=== PATIENT | male | born 1995 | race Hispanic/Latino ===

== ENCOUNTER 2020-03-17 00:42 | Observation (INO) | payer MEDICAID ==
[~2020-03-17] VITALS: Ht 170.2 cm; Wt 78.9 kg
[2020-03-17 01:53] LABS: BASOPHILS % (AUTO) 0.5 % (0.0-5.0); LYMPHOCYTES % (AUTO) 32.9 % (21.0-51.0); MEAN CORPUSCULAR HEMOGLOBIN 30.2 pg (27.0-33.0); MEAN CORPUSCULAR HGB CONC 35.3 g/dL (32.0-36.0); MEAN CORPUSCULAR VOLUME 85.5 fL (79-99); MONOCYTES % (AUTO) 8.7 % (3.0-13.0); NEUTROPHILS % (AUTO) 54.8 % (40.0-77.0); PLATELET COUNT (AUTO) 247 K/uL (130-400); RED BLOOD CELL COUNT(AUTO) 5.03 MIL/uL (4.50-6.20); RED CELL DISTRIBUTION WIDTH 12.4 % (11.0-15.5); WHITE BLOOD COUNT (AUTO) 7.5 K/uL (4.8-10.8)
[2020-03-17 02:04] LABS: POTASSIUM 3.7 mmol/L (3.5-5.1)
[2020-03-17 02:08] LABS: ALBUMIN 4.3 g/dL (3.5-5.0); BILIRUBIN,TOTAL 0.5 mg/dL (0.2-1.0); TOTAL PROTEIN, SERUM 7.9 g/dL (6.0-8.3)
[2020-03-17] MEDS ORDERED: KETOROLAC 30MG VIAL (30MG/ML) ONE (04:11)
[2020-03-17] MEDS ORDERED: DICYCLOMINE 20MG (10MG/ML) AMP IM ONE (04:11)
[2020-03-17] MEDS ORDERED: MORPHINE 4 MG SYG IV PRN (05:00)
[2020-03-17] MEDS: LACTATED RINGERS 1000ML 1,000 ML IV SCH (05:00)
[2020-03-17] MEDS ORDERED: LACTULOSE 20 GM/30 ML UDCUP PO PRN (05:00)
[2020-03-17] MEDS ORDERED: GUAIFENESIN-DM 200/20 MG 10 ML PO PRN (05:00)
[2020-03-17] MEDS ORDERED: DiphenhydrAMINE HCL 50 MG/ML VIAL IV PRN (05:00)
[2020-03-17] MEDS ORDERED: ACETAMINOPHEN 325 MG TAB PO PRN ×2 (05:00)
[2020-03-17] MEDS ORDERED: DIPHENHYDRAMINE HCL 25 MG CAPSULE PO PRN (05:00)
[2020-03-17] MEDS ORDERED: MAG/ALUM/SIMETH 30 ML UDCUP PO PRN (05:00)
[2020-03-17] MEDS: CEFTRIAXONE 1G VIAL IV SCH (05:00)
[2020-03-17] MEDS ORDERED: NITROGLYCERIN 0.4 MG SL TAB SL PRN (05:00)
[2020-03-17] MEDS ORDERED: CEFTRIAXONE 1G VIAL ONE (05:56)
[2020-03-17] MEDS ORDERED: METRONIDAZOLE 500MG/100ML BAG 100 ML ONE ×3 (05:56→23:01)
[2020-03-17] MEDS ORDERED: LACTATED RINGERS 1000ML 1,000 ML IV ONE (05:56)
[2020-03-17] MEDS ORDERED: FAMOTIDINE 20MG VIAL IV ONE ×2 (08:16→23:01)
[2020-03-17] MEDS: FAMOTIDINE 20MG VIAL IV SCH ×2 (09:00→21:00)
[2020-03-17] MEDS: METRONIDAZOLE 500MG/100ML BAG 100 ML IV SCH (21:00)
[2020-03-18] MEDS: LACTATED RINGERS 1000ML 1,000 ML IV SCH ×3 (01:00→03:05)
[2020-03-18 01:36] VITALS: BP 156/77
[2020-03-18 03:53] VITALS: BP 116/75
[2020-03-18] MEDS: CEFTRIAXONE 1G VIAL IV SCH (05:55)
[2020-03-18] MEDS: METRONIDAZOLE 500MG/100ML BAG 100 ML IV SCH ×3 (05:55→20:00)
[2020-03-18 06:17] LABS: HEMATOCRIT 42.3 % (42-54); MEAN CORPUSCULAR HEMOGLOBIN 30.1 pg (27.0-33.0); MEAN CORPUSCULAR HGB CONC 35.2 g/dL (32.0-36.0); MEAN CORPUSCULAR VOLUME 85.5 fL (79-99); RED BLOOD CELL COUNT(AUTO) 4.95 MIL/uL (4.50-6.20); RED CELL DISTRIBUTION WIDTH 12.1 % (11.0-15.5); WHITE BLOOD COUNT (AUTO) 7.1 K/uL (4.8-10.8)
[2020-03-18 06:42] LABS: INR 1.11 (0.85-1.15)
[2020-03-18 06:43] LABS: PARTIAL THROMBOPLASTIN TIME 27.3 SEC (26.3-35.5)
[2020-03-18 06:58] LABS: ALBUMIN 3.8 g/dL (3.5-5.0); BILIRUBIN,TOTAL 0.4 mg/dL (0.2-1.0); CREATININE 0.9 mg/dL (0.5-1.5); POTASSIUM 4.2 mmol/L (3.5-5.1); TOTAL PROTEIN, SERUM 7.3 g/dL (6.0-8.3)
[2020-03-18 08:02] VITALS: BP 122/72
[2020-03-18] MEDS: FAMOTIDINE 20MG VIAL IV SCH ×2 (10:06→20:00)
[2020-03-18 11:12] VITALS: BP 128/55
[2020-03-18] MEDS ORDERED: LACTATED RINGERS 1000ML 1,000 ML IV ONE (15:37)
[2020-03-18 16:29] VITALS: BP 109/67
[2020-03-18 20:00] VITALS: BP 113/71
[2020-03-19] VITALS (27 sets, daily range): BP systolic 116–150; BP diastolic 45–99
[2020-03-19 04:34] LABS: HEMATOCRIT 41.2 % (42-54); MEAN CORPUSCULAR HEMOGLOBIN 29.5 pg (27.0-33.0); MEAN CORPUSCULAR HGB CONC 35.2 g/dL (32.0-36.0); MEAN CORPUSCULAR VOLUME 83.9 fL (79-99); RED BLOOD CELL COUNT(AUTO) 4.91 MIL/uL (4.50-6.20); RED CELL DISTRIBUTION WIDTH 11.9 % (11.0-15.5); WHITE BLOOD COUNT (AUTO) 6.1 K/uL (4.8-10.8)
[2020-03-19] MEDS ORDERED: LACTATED RINGERS 1000ML 1,000 ML IV ONE (04:36)
[2020-03-19] MEDS: METRONIDAZOLE 500MG/100ML BAG 100 ML IV SCH ×3 (04:38→20:09)
[2020-03-19] MEDS: CEFTRIAXONE 1G VIAL IV SCH (04:38)
[2020-03-19 04:55] LABS: ALBUMIN 3.7 g/dL (3.5-5.0); BILIRUBIN,TOTAL 0.6 mg/dL (0.2-1.0); CREATININE 0.9 mg/dL (0.5-1.5); POTASSIUM 3.7 mmol/L (3.5-5.1)
[2020-03-19] MEDS ORDERED: BUPIVACAINE/PF 0.25% 30ML VIAL IJ ONE (06:48)
[2020-03-19] MEDS ORDERED: SUCCINYLCHOLINE CHLORIDE 20 MG/ML 10 ML VIAL ONE (07:45)
[2020-03-19] MEDS ORDERED: DEXAMETHASONE SOD PHOSPHATE 10MG/ML 1ML VIAL ONE (07:45)
[2020-03-19] MEDS ORDERED: NEOSTIGMINE 5MG/5ML SYR IV ONE (07:46)
[2020-03-19] MEDS ORDERED: LIDOCAINE PF 100MG/5ML (2%) SYRINGE 5ML ONE (07:46)
[2020-03-19] MEDS ORDERED: GLYCOPYRROLATE 1 MG/5 ML SYRINGE ONE (07:46)
[2020-03-19] MEDS ORDERED: MIDAZOLAM HCL 1 MG/ML 2ML VIAL ONE (07:46)
[2020-03-19] MEDS ORDERED: PROPOFOL 10 MG/ML 20ML VIAL IV ONE ×2 (07:46→08:08)
[2020-03-19] MEDS ORDERED: ROCURONIUM 10MG/1ML SYR 10 MG/ML ML ONE (07:46)
[2020-03-19] MEDS ORDERED: ONDANSETRON 4MG INJ ONE (07:46)
[2020-03-19] MEDS ORDERED: FENTANYL CITRATE PF 50 MCG/1 ML 2ML VIAL ONE ×2 (07:47→08:23)
[2020-03-19] MEDS ORDERED: MEPERIDINE-PF 25 MG/ML SYG ONE ×2 (08:49→09:19)
[2020-03-19] MEDS: ONDANSETRON 4MG INJ IV PRN ×2 (09:30→20:09)
[2020-03-19] MEDS: FAMOTIDINE 20MG VIAL IV SCH ×2 (10:09→20:10)
[2020-03-19] MEDS: MORPHINE 2 MG SYG IV PRN ×2 (12:23→20:10)
[2020-03-20] MEDS ORDERED: LACTATED RINGERS 1000ML 1,000 ML IV SCH (00:45)
[2020-03-20] MEDS ORDERED: LACTATED RINGERS 1000ML 1,000 ML IV ONE (00:45)
[2020-03-20] MEDS ORDERED: ACETAMINOPHEN WITH CODEINE 1 TAB TAB PO PRN (00:45)
[2020-03-20] MEDS ORDERED: ACETAMINOPHEN WITH CODEINE 1 TAB TAB ONE (00:46)
[2020-03-20 03:35] VITALS: BP 137/63
[2020-03-20] MEDS: METRONIDAZOLE 500MG/100ML BAG 100 ML IV SCH (04:49)
[2020-03-20] MEDS: CEFTRIAXONE 1G VIAL IV SCH (04:49)
[2020-03-20 05:47] LABS: HEMATOCRIT 37.7 % (42-54); MEAN CORPUSCULAR HEMOGLOBIN 29.8 pg (27.0-33.0); MEAN CORPUSCULAR HGB CONC 35.3 g/dL (32.0-36.0); MEAN CORPUSCULAR VOLUME 84.5 fL (79-99); RED BLOOD CELL COUNT(AUTO) 4.46 MIL/uL (4.50-6.20); WHITE BLOOD COUNT (AUTO) 10.9 K/uL (4.8-10.8)
[2020-03-20 06:13] LABS: ALBUMIN 3.5 g/dL (3.5-5.0); BILIRUBIN,TOTAL 0.6 mg/dL (0.2-1.0); POTASSIUM 3.5 mmol/L (3.5-5.1); TOTAL PROTEIN, SERUM 6.8 g/dL (6.0-8.3)
[2020-03-20 07:30] VITALS: BP 119/60
[2020-03-20] MEDS: FAMOTIDINE 20MG VIAL IV SCH (09:28)
[2020-03-20 11:00] VITALS: BP 142/78
[2020-10-12] MEDS ORDERED: CYCL10TA16 PO (14:46)
== END 2020-03-20 18:30 | disposition home or self-care (01) ==
LOC: EDH 00:42 → EDHIP 00:43 → INTOOBSV 00:43 → UNDOADMIN 04:59 → EDHIP 04:59 → 3BH 03-18 01:37
PROVIDERS: ADMIT Family Medicine; ATTEND Family Medicine
DX: K80.62 Calculus of gallbladder and bile duct with acute cholecystitis without obstruction (principal); Z20.822 Contact with and (suspected) exposure to COVID-19
CPT/HCPCS: 36415 ×4; 47562; 71046; 76705; 78226; 80053 ×4; 83690; 85025; 85027 ×3; 85610; 85730; 87426; 88304; 96361 ×2; 96365; 96366 ×3; 96375 ×2; 96376 ×3; 99285; A4215; A4221; A4222; A4223; A4600; A4649 ×2; A4663; A9537; C1769 ×3; G0378 ×83; J0330; J0500; J0696 ×4; J1100; J1885; J2001; J2175 ×2; J2250; J2405 ×3; J2704 ×2; J2710; J3010 ×2; J3490 ×18; J7030; J7120 ×5

== ENCOUNTER 2020-03-24 19:34 | Emergency (ER) | payer MEDICAID ==
[2020-03-24] MEDS ORDERED: SODIUM CHLORIDE 0.9% 1000ML 1,000 ML IV ONE (21:10)
[2020-03-24] MEDS ORDERED: ONDANSETRON HCL 4 MG/2 ML VIAL ONE (21:13)
[2020-03-24 22:05] LABS: BASOPHILS % (AUTO) 0.9 % (0.0-5.0); EOSINOPHILS % (AUTO) 5.9 % (0.0-8.0); LYMPHOCYTES % (AUTO) 28.1 % (21.0-51.0); MEAN CORPUSCULAR HEMOGLOBIN 29.6 pg (27.0-33.0); MEAN CORPUSCULAR HGB CONC 34.8 g/dL (32.0-36.0); MONOCYTES % (AUTO) 9.7 % (3.0-13.0); NEUTROPHILS % (AUTO) 55.1 % (40.0-77.0); PLATELET COUNT (AUTO) 271 K/uL (130-400); RED BLOOD CELL COUNT(AUTO) 4.94 MIL/uL (4.50-6.20); RED CELL DISTRIBUTION WIDTH 12.4 % (11.0-15.5); WHITE BLOOD COUNT (AUTO) 6.4 K/uL (4.8-10.8)
[2020-03-24 22:17] LABS: CREATININE 0.8 mg/dL (0.5-1.5); POTASSIUM 3.6 mmol/L (3.5-5.1)
[2020-03-24 22:21] LABS: ALBUMIN 3.8 g/dL (3.5-5.0); BILIRUBIN,TOTAL 0.3 mg/dL (0.2-1.0); TOTAL PROTEIN, SERUM 8.1 g/dL (6.0-8.3)
[2020-03-24] MEDS ORDERED: IOHEXOL-350 75 ML VIAL IV ONE (22:45)
[2020-03-24 22:46] LABS: APPEARANCE,URINE Clear (CLEAR); BILIRUBIN,URINE Negative (NEGATIVE); COLOR,URINE Yellow (YELLOW); GLUCOSE, URINE (UA) Negative (NEGATIVE); KETONES,URINE Trace mg/dL (NEGATIVE); LEUKOCYTE ESTERASE ,URINE Negative (NEGATIVE); NITRATE,URINE Negative (NEGATIVE); OCCULT BLOOD,URINE Negative (NEGATIVE); PROTEIN,URINE Negative (NEGATIVE)
== END 2020-03-24 23:39 | disposition home or self-care (01) ==
LOC: EDH 19:34
DX: E86.0 Dehydration (principal); R10.12 Left upper quadrant pain; Z90.49 Acquired absence of other specified parts of digestive tract
CPT/HCPCS: 36415; 80053; 81003; 83690; 85025; 96360; 99283; J2405; J7030; Q9967

== ENCOUNTER 2020-04-09 12:33 | Emergency (ER) | payer MEDICAID ==
[2020-04-09 13:05] LABS: BASOPHILS % (AUTO) 0.8 % (0.0-5.0); EOSINOPHILS % (AUTO) 3.4 % (0.0-8.0); HEMATOCRIT 43.3 % (42-54); LYMPHOCYTES % (AUTO) 40.3 % (21.0-51.0); MEAN CORPUSCULAR HEMOGLOBIN 29.9 pg (27.0-33.0); MEAN CORPUSCULAR HGB CONC 35.1 g/dL (32.0-36.0); MEAN CORPUSCULAR VOLUME 85.2 fL (79-99); MONOCYTES % (AUTO) 10.9 % (3.0-13.0); NEUTROPHILS % (AUTO) 44.4 % (40.0-77.0); PLATELET COUNT (AUTO) 300 K/uL (130-400); RED BLOOD CELL COUNT(AUTO) 5.08 MIL/uL (4.50-6.20); RED CELL DISTRIBUTION WIDTH 12.6 % (11.0-15.5); WHITE BLOOD COUNT (AUTO) 4.8 K/uL (4.8-10.8)
[2020-04-09] MEDS ORDERED: ONDANSETRON HCL 4 MG/2 ML VIAL ONE (13:11)
[2020-04-09] MEDS ORDERED: SODIUM CHLORIDE 0.9% 1000ML 1,000 ML IV ONE (13:11)
[2020-04-09 13:22] LABS: ALBUMIN 4.2 g/dL (3.5-5.0); BILIRUBIN,TOTAL 0.6 mg/dL (0.2-1.0); CREATININE 0.9 mg/dL (0.5-1.5); POTASSIUM 3.7 mmol/L (3.5-5.1); TOTAL PROTEIN, SERUM 7.8 g/dL (6.0-8.3)
[2020-04-09] MEDS ORDERED: IOHEXOL-350 75 ML VIAL IV ONE (15:09)
== END 2020-04-09 16:08 | disposition home or self-care (01) ==
LOC: EDH 12:33
DX: K59.00 Constipation, unspecified (principal); Z90.49 Acquired absence of other specified parts of digestive tract
CPT/HCPCS: 36415; 74177; 80053; 83690; 85025; 96374; 99285; J2405; J7030; Q9967

== ENCOUNTER 2020-04-16 15:07 | Emergency (ER) | payer MEDICAID | END 2020-04-16 16:19 | disposition home or self-care (01) | LOC: EDH 15:07 | DX: K59.00 Constipation, unspecified (principal); Z90.49 Acquired absence of other specified parts of digestive tract ==

== ENCOUNTER 2020-06-18 14:46 | Emergency (ER) | payer MEDICAID | END 2020-06-18 16:23 | disposition home or self-care (01) | LOC: EDH 14:46 | DX: H65.01 Acute serous otitis media, right ear (principal); H00.019 Hordeolum externum unspecified eye, unspecified eyelid; Z90.49 Acquired absence of other specified parts of digestive tract ==

== ENCOUNTER 2020-10-12 11:58 | Emergency (ER) | payer MEDICAID ==
[~2020-10-12] VITALS: Ht 170.2 cm; Wt 80.7 kg
[2020-10-12] MEDS ORDERED: ONDA4TAB10 PO (14:46)
[2020-10-12] MEDS ORDERED: CYCL10 PO (14:46)
[2020-10-12] MEDS ORDERED: NAPR-1180 PO (14:46)
[2020-10-12] MEDS ORDERED: ACETAMINOPHEN 500 MG TABLET PO ONE (15:00)
[2020-10-12] MEDS ORDERED: CYCLOBENZAPRINE HCL 10 MG TABLET PO ONE (15:00)
[2020-10-12 15:01] VITALS: BP 135/74
== END 2020-10-12 15:16 | disposition home or self-care (01) ==
LOC: EDH 11:58
DX: S09.90XA Unspecified injury of head, initial encounter (principal); F07.81 Postconcussional syndrome; Z79.1 Long term (current) use of non-steroidal anti-inflammatories (NSAID); Z79.899 Other long term (current) drug therapy; X58.XXXA Exposure to other specified factors, initial encounter; Y93.67 Activity, basketball; Y92.89 Other specified places as the place of occurrence of the external cause; Y99.8 Other external cause status

== ENCOUNTER 2020-10-25 07:41 | Emergency (ER) | payer MEDICAID ==
[~2020-10-25] VITALS: Ht 167.6 cm; Wt 79.4 kg
[~2020-10-25 07:41] MED LIST: CYCL10 PO; NAPR-1180 PO; ONDA4TAB10 PO
[2020-10-25 07:42] VITALS: BP 134/66
[2020-10-25] MEDS ORDERED: IBUP-2070 PO (09:26)
[2020-10-25 10:19] VITALS: BP 122/61
== END 2020-10-25 10:22 | disposition home or self-care (01) ==
LOC: EDH 07:41
DX: J06.9 Acute upper respiratory infection, unspecified (principal); Z20.822 Contact with and (suspected) exposure to COVID-19; Z79.1 Long term (current) use of non-steroidal anti-inflammatories (NSAID); Z79.899 Other long term (current) drug therapy
CPT/HCPCS: 87635; 87804 ×2; 99283; C9803

== ENCOUNTER 2021-01-31 20:33 | Emergency (ER) | payer MEDICAID ==
[~2021-01-31] VITALS: Ht 170.2 cm; Wt 81.6 kg
[~2021-01-31 20:33] MED LIST changes: -CYCL10 PO; +CYCL10TA16 PO; +IBUP-2070 PO
[2021-01-31 20:35] VITALS: BP 132/72
[2021-01-31] MEDS ORDERED: IBUP-2077 PO (21:47)
== END 2021-01-31 21:54 | disposition home or self-care (01) ==
LOC: EDH 20:33
DX: S53.441A Ulnar collateral ligament sprain of right elbow, initial encounter (principal); Z90.49 Acquired absence of other specified parts of digestive tract; Z79.899 Other long term (current) drug therapy; Z79.1 Long term (current) use of non-steroidal anti-inflammatories (NSAID); X58.XXXA Exposure to other specified factors, initial encounter; Y93.89 Activity, other specified; Y92.89 Other specified places as the place of occurrence of the external cause; Y99.8 Other external cause status
CPT/HCPCS: 29125; 73130

== ENCOUNTER 2021-08-10 16:08 | Emergency (ER) | payer MEDICAID ==
[~2021-08-10] VITALS: Ht 170.2 cm; Wt 81.6 kg
[~2021-08-10 16:08] MED LIST changes: +IBUP-2077 PO
[2021-08-10] MEDS ORDERED: IBUPROFEN 800 MG TAB PO ONE (16:30)
[2021-08-10] MEDS ORDERED: IBUP-2071 PO (17:19)
[2021-08-10 17:32] VITALS: BP 126/70
== END 2021-08-10 17:33 | disposition home or self-care (01) ==
LOC: EDH 16:08
DX: S90.31XA Contusion of right foot, initial encounter (principal); Z79.1 Long term (current) use of non-steroidal anti-inflammatories (NSAID); X58.XXXA Exposure to other specified factors, initial encounter; Y93.61 Activity, american tackle football; Y92.89 Other specified places as the place of occurrence of the external cause; Y99.8 Other external cause status
CPT/HCPCS: 73630

== ENCOUNTER 2022-12-19 03:13 | Emergency (ER) | payer MEDICAID ==
[~2022-12-19] VITALS: Ht 170.2 cm; Wt 83.9 kg
[~2022-12-19 03:13] MED LIST changes: +IBUP-2071 PO
[2022-12-19] MEDS ORDERED: CEFTRIAXONE 2GM VIAL IJ ONE (03:30)
[2022-12-19] MEDS ORDERED: KETOROLAC 60 MG VIAL (30MG/ML) IM ONE (03:30)
[2022-12-19] MEDS ORDERED: CIPR7.5D7 OT (03:38)
[2022-12-19 04:02] VITALS: BP 128/78; PULSE 88; RESP 20; O2SAT 99
== END 2022-12-19 04:04 | disposition home or self-care (01) ==
LOC: EDH 03:13
DX: H60.92 Unspecified otitis externa, left ear (principal); Z79.899 Other long term (current) drug therapy
CPT/HCPCS: 99283; 96372; J0696; J1885

== ENCOUNTER 2023-06-29 13:05 | Emergency (ER) | payer BC, MEDICAID ==
[~2023-06-29] VITALS: Ht 170.2 cm; Wt 85.7 kg
[~2023-06-29 13:05] MED LIST changes: +CIPR7.5D7 OT
[2023-06-29 13:45] LABS: ADD UA MICROSCOPIC YES; APPEARANCE,URINE CLEAR (CLEAR); BILIRUBIN,URINE NEGATIVE (NEGATIVE); COLOR,URINE YELLOW (YELLOW); GLUCOSE, URINE (UA) NEGATIVE (NEGATIVE); KETONES,URINE NEGATIVE (NEGATIVE); LEUKOCYTE ESTERASE ,URINE NEGATIVE Leu/uL (NEGATIVE); NITRATE,URINE NEGATIVE (NEGATIVE); OCCULT BLOOD,URINE NEGATIVE (NEGATIVE); PH,URINE 5.5 (5.0-8.0); PROTEIN,URINE 10 mg/dL (NEGATIVE); UROBILINOGEN,URINE 0.2 mg/dL (0.2-1.0)
[2023-06-29 13:47] LABS: MUCUS,URINE RARE LPF (None Seen); RBC,URINE 0-1 /HPF (0-1); SQUAMOUS EPITHELIAL CELL,UR RARE /HPF (0-2); WBC,URINE 0-1 /HPF (0-1)
[2023-06-29 13:48] LABS: BASOPHILS # (AUTO) 0.03 K/uL (0.00-0.20); BASOPHILS % (AUTO) 0.6 % (0.0-5.0); EOSINOPHILS # (AUTO) 0.15 K/uL (0.00-0.70); EOSINOPHILS % (AUTO) 2.8 % (0.0-8.0); HEMATOCRIT 44.2 % (42-54); IMMATURE GRANULOCYTE ABSOLUTE 0.01 K/uL (0-1); LYMPHOCYTES # (AUTO) 1.6 K/uL (1.0-4.8); LYMPHOCYTES % (AUTO) 30.1 % (21.0-51.0); MEAN CORPUSCULAR HGB CONC 35.3 g/dL (32.0-36.0); MONOCYTES # (AUTO) 0.5 K/uL (0.1-1.0); MONOCYTES % (AUTO) 8.7 % (3.0-13.0); NEUTROPHILS # (AUTO) 3.1 K/uL (1.8-7.7); NEUTROPHILS % (AUTO) 57.6 % (40.0-77.0); PLATELET COUNT (AUTO) 268 K/uL (130-400); RED CELL DISTRIBUTION WIDTH 12.5 % (11.0-15.5); WHITE BLOOD COUNT (AUTO) 5.4 K/uL (4.8-10.8)
[2023-06-29 14:00] LABS: POTASSIUM 3.7 mmol/L (3.5-5.1)
[2023-06-29 14:04] LABS: BILIRUBIN,TOTAL 0.4 mg/dL (0.2-1.0); TOTAL PROTEIN, SERUM 7.9 g/dL (6.0-8.3)
[2023-06-29 14:15] VITALS: BP 118/61; PULSE 69; RESP 15
== END 2023-06-29 15:53 | disposition home or self-care (01) ==
LOC: EDH 13:05
DX: R07.89 Other chest pain (principal); Z90.49 Acquired absence of other specified parts of digestive tract
CPT/HCPCS: 36415; 71045; 80053; 81001; 83735; 84484; 85025; 93005

== ENCOUNTER → 2023-08-30 | Outpatient (CLI) | payer BC ==
[~2023-08-30] MED LIST changes: +IBUP-1493 PO; +IOHEXOL 350 MG/ML 100ML INFUS..BTL IV ONE; +ONDA-243 PO; -ONDA4TAB10 PO
== END | disposition home or self-care (01) ==
LOC: RAH 09:13
PROVIDERS: ATTEND Internal Medicine
DX: R07.9 Chest pain, unspecified (principal)
CPT/HCPCS: 75574; Q9967

== ENCOUNTER 2023-12-01 13:36 | Emergency (ER) | payer BC ==
[~2023-12-01] VITALS: Ht 170.2 cm; Wt 87.5 kg
[~2023-12-01 13:36] MED LIST changes: -IOHEXOL 350 MG/ML 100ML INFUS..BTL IV ONE
[2023-12-01 13:43] VITALS: TEMP 98.7
[2023-12-01 15:09] VITALS: BP 122/72; PULSE 80; RESP 16; O2SAT 98
== END 2023-12-01 15:16 | disposition home or self-care (01) ==
LOC: EDH 13:36
DX: M79.662 Pain in left lower leg (principal); Z79.1 Long term (current) use of non-steroidal anti-inflammatories (NSAID); Z88.8 Allergy status to other drugs, medicaments and biological substances; Z90.49 Acquired absence of other specified parts of digestive tract; Z91.041 Radiographic dye allergy status
CPT/HCPCS: 93971

== ENCOUNTER → 2023-12-08 | Outpatient (CLI) | payer BC | END | disposition home or self-care (01) | LOC: RAH 08:48 | PROVIDERS: ATTEND Podiatrist | DX: M25.472 Effusion, left ankle (principal); M79.89 Other specified soft tissue disorders; M79.662 Pain in left lower leg | CPT/HCPCS: 73718; 73721 ==

== ENCOUNTER 2024-02-22 10:44 | Emergency (ER) | payer BC ==
[~2024-02-22] VITALS: Ht 170.2 cm; Wt 86.2 kg
[2024-02-22 10:45] VITALS: BP 131/92; PULSE 58; RESP 16; TEMP 97.9; O2SAT 98
--- NOTE | 2024-02-22 11:13 | ERN ---
General Chief Complaint: Abdominal Pain Stated Complaint: ABDOMINAL PAIN Time Seen by MD: 10:45 History of Present Illness Initial Comments This is a case of a 28-year-old male with a past medical history of cholecystectomy who presented to the ER with the complaints of lower abdominal pain, bloating, diarrhea since the past 2 weeks. He states that he has been experiencing intermittent lower abdominal pain radiating from left to right, blood-tinged diarrhea, bloating, burning sensation urinating since 2 weeks. He also mentions that he has recently completed an antibiotic course [unable to recall the name] prescribed at a clinic. Denies fever, chills, cough, cold, sore throat, nausea, vomiting, chest pain, palpitations, upper abdominal pain. Allergies: Coded Allergies: iodine (Verified Allergy, Mild, HIVES, 08/31/23) Patient had 2 hives develop post injection for CTA CORONARY HEART. pt was given water and held for additional 40 minutes and monitored for further reactions. No further hives were noted and pt was released to go home and advised to drink plenty of water and let all his Physicians know about his iodine allergy. I advised 's office as well about his reaction. Home Meds Active Scripts Ciprofloxacin HCl/Dexameth (Ciproflox-Dexameth Otic Susp) 0.3 %-0.1 % Drops.susp, 7.5 ML OT BID for 7 Days, #4 DROP 0 Refills Prov:ELDER RAI Sr., MD 12/19/22 Ibuprofen (Motrin/Advil) 800 Mg Tab, 800 MG PO TID, #30 TAB Prov:PATRIA JONES MD 12/03/22 Cyclobenzaprine HCl (Flexeril) 10 Mg Tab, 10 MG PO TID for 10 Days, #30 TAB Prov:SKYLER EDWARDS MD 04/17/22 Ibuprofen (Ibuprofen 800 mg Tab) 800 Mg Tab, 800 MG PO Q8H PRN for PAIN for 10 Days, #30 TAB Prov:SKYLER EDWADRS MD 04/17/22 Ibuprofen (Ibuprofen) 800 Mg Tablet, 800 MG PO TIDMEALS PRN for PAIN, #45 TAB Prov:LOUIE MCFADDEN 08/10/21 Ibuprofen (Ibuprofen 800 mg Tab) 800 Mg Tab, 800 MG PO Q8H PRN for PAIN for 10 Days, #30 TAB Prov:SKYLER EDWARDS MD 01/31/21 Ibuprofen (Ibuprofen) 600 Mg Tablet, 600 MG PO Q6H PRN for Fever/pain, #30 TAB Prov:TODD HUI MD 10/25/20 Ondansetron (Ondansetron Odt) 4 Mg Tab.rapdis, 4 MG PO TIDP, #21 TAB Prov:LOUIE MCFADDEN 10/12/20 Cyclobenzaprine HCl (Flexeril) 10 Mg Tab, 10 MG PO BID, #30 TAB Prov:LOUIE MCFADDEN 10/12/20 Naproxen (Naprosyn) 500 Mg Tablet, 500 MG PO BIDPC, #30 TAB Prov:LOUIE MCFADDEN 10/12/20 Past Medical History Past Medical History: No Pertinent History Past Surgical History: Cholecystectomy Surgical History Other: Denies surgical history Family History Family History: Negative Social History Social History: Lives with family ROS Dictation CONSTITUTIONAL: No chills, no fever, no weakness, no diaphoresis, no malaise. HEAD/FACE: No signs of trauma. EENT: No eye pain, no blurred vision, no tearing, no double vision, no ear pain, no ear discharge, no nose pain, no nasal congestion, no throat pain, no throat swelling, no mouth pain. RESPIRATORY: No cough, no orthopnea, no SOB, no stridor, no wheezing. CARDIOVASCULAR: No chest pain, no edema, no palpitations, no syncope. GASTROINTESTINAL/ABDOMINAL: Intermittent lower abdominal pain, blood-tinged diarrhea, bloating no constipation, no nausea, no vomiting. GENITOURINARY: No abnormal discharge, no dysuria, no frequent urination, no hematuria. No complaints of pain in the genitals, burning sensation during urination. MUSCULOSKELETAL: No back pain, no gout, no joint pain, no joint swelling, no muscle pain, no muscle stiffness, no neck pain. INTEGUMENTARY: No change in color, no change in hair/nails, no dryness, no lesion, no lumps, no rash. NEUROLOGICAL/PSYCH: No anxiety, not depressed, no emotional problem, no headache, no numbness, no pre-existing deficit, no history of seizures, no tremors, no weakness. HEMATOLOGIC/LYMPHATIC: Not anemic, no history of blood clots, no apparent bleeding, no bruising, glands not swollen. All Systems Negative, Except as Noted. Physical Exam Physical Exam Dictation Physical Exam Dictation VITAL SIGNS: Reviewed. GENERAL APPEARANCE: Alert, oriented x3, no acute distress HEAD AND FACE: Non-traumatic. EYES: PERRL, pink conjunctivas, eyelid no trauma, anterior chamber clear. EARS: Pinnas intact and no signs of trauma or erythema. Ear canals clear and no discharge. TMs no erythema. NOSE: No discharge, no bleeding. OROPHARYNX: Mouth normal, teeth no caries, tongue pink. Pharynx clear, no erythema. Tonsils no exudates, no abscesses noted. Mucous membrane moist. NECK: Supple, non-tender, no thyromegaly, no masses, no JVD, no bruits. BREAST: Deferred. CHEST: No tenderness, no crepitus, no paradoxical movement, no retractions. LUNGS: Clear, well-ventilated, symmetric, no rales, no wheezing, no rhonchi, no stridor, good breath sounds bilaterally. HEART: Regular rate, regular rhythm, no murmur, no gallops. VASCULAR: No peripheral edema. ABDOMEN: Soft, positive bowel sounds, nondistended, no guarding, nontender, no rebound, no masses no hepatomegaly, no splenomegaly, no Dill's sign, no hernias. RECTAL: Deferred. GENITAL: Deferred. NEUROLOGICAL: Normal speech, gross motor function intact, gross sensory function intact. MUSCULOSKELETAL: Neck nontender, full range of motion, back nontender, full range of motion. EXTREMITIES: Nontender, full range of motion. SKIN: Color pink, dry, no turgor, no rash, no lacerations, no abrasions, no contusions. LYMPHATICS: Deferred. Results Laboratory and Microbiology Lab and Micro Result Laboratory Tests Test 02/22/24 11:15 02/22/24 11:34 White Blood Count 6.4 K/uL (4.8-10.8) Red Blood Count 5.33 MIL/uL (4.50-6.20) Hemoglobin 16.2 g/dL (14.0-18.0) Hematocrit 45.8 % (42-54) Mean Corpuscular Volume 85.9 fL (79-99) Mean Corpuscular Hemoglobin 30.4 pg (27.0-33.0) Mean Corpuscular Hemoglobin Concent 35.4 g/dL (32.0-36.0) Red Cell Distribution Width 12.7 % (11.0-15.5) Platelet Count 268 K/uL (130-400) Mean Platelet Volume 11.3 fL (7.5-10.5) H Immature Granulocyte % (Auto) 0.2 % (0-1) Neutrophils (%) (Auto) 56.4 % (40.0-77.0) Lymphocytes (%) (Auto) 31.4 % (21.0-51.0) Monocytes (%) (Auto) 9.2 % (3.0-13.0) Eosinophils (%) (Auto) 2.3 % (0.0-8.0) Basophils (%) (Auto) 0.5 % (0.0-5.0) Neutrophils # (Auto) 3.6 K/uL (1.8-7.7) Lymphocytes # (Auto) 2.0 K/uL (1.0-4.8) Monocytes # (Auto) 0.6 K/uL (0.1-1.0) Eosinophils # (Auto) 0.15 K/uL (0.00-0.70) Basophils # (Auto) 0.03 K/uL (0.00-0.20) Absolute Immature Granulocyte (auto 0.01 K/uL (0-1) Nucleated Red Blood Cells 0.0 % (0.0-0.19) Sodium Level 141 mmol/L (136-145) Potassium Level 3.8 mmol/L (3.5-5.1) Chloride Level 105 mmol/L (101-111) Carbon Dioxide Level 29 mmol/L (21-32) Blood Urea Nitrogen 15 mg/dL (7-18) Creatinine 0.8 mg/dL (0.5-1.3) Glomerular Filtration Rate Calc 124 mL/min (>90) Random Glucose 93 mg/dL (70-105) Total Calcium 9.1 mg/dL (8.5-10.1) Urine Color YELLOW (YELLOW) Urine Appearance CLEAR (CLEAR) Urine pH 5.5 (5.0-8.0) Urine Specific [place] 1.028 (1.001-1.031) Urine Protein NEGATIVE mg/dL (NEGATIVE) Urine Glucose (UA) NEGATIVE mg/dL (NEGATIVE) Urine Ketones NEGATIVE mg/dL (NEGATIVE) Urine Occult Blood NEGATIVE (NEGATIVE) Urine Nitrate NEGATIVE (NEGATIVE) Urine Bilirubin NEGATIVE mg/dL (NEGATIVE) Urine Urobilinogen 0.2 mg/dL (0.2-1.0) Urine Leukocyte Esterase NEGATIVE [place]/uL MDM MDM Potential differential diagnoses include: Gastroenteritis Inflammatory bowel disease Irritable bowel syndrome UTI Assessment: We will order CBC to rule any anemia, infections and to evaluate the overall health of the patient. BMP was ordered in order to assess various electrolytes, kidney function, liver function ,protein levels and blood glucose levels, we will order 1 L NS for adequate hydration I will re-evaluate the patient after treatment and diagnostic exams have returned to determine whether they require further testing, can be safely discharged home, or need admission for further treatment and evaluation. Given the social determinants of health affecting care, including literacy, access to medical care, prescription drug management, and [id number] drugs, I will ensure that treatment plans are tailored accordingly. Revaluation : Disposition: Patient presents with a two week history of lower abdominal discomfort and diarrhea. Patient states this has been ongoing for two weeks took some antibiotics with state he does not he was better. Laboratory workup negative for acute findings. 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 He also states that he has been tested for H pylori and was positive for finished a course of antibiotics. ED Course Orders Procedure Category Date Status Time Cbc With Differential LAB 02/22/24 Complete 11:00 Basic Metabolic Panel LAB 02/22/24 Complete 11:00 Urinalysis Profile LAB 02/22/24 Complete 11:00 Pantoprazole 40mg Inj PHA 02/22/24 Complete (Protonix 40mg Inj 11:00 0.9%Nacl 1000ml (Ns PHA 02/22/24 Complete 1000ml) 11:00 Current Medications Medications (Trade) Dose Ordered Sig/Rama Route PRN Reason Start Time Stop Time Status Last Admin Dose Admin Pantoprazole Sodium (PROTonix 40MG INJ) 40 mg ONCE ONCE IVP 02/22/24 11:00 02/22/24 11:04 DC 02/22/24 11:18 Sodium Chloride 1,000 ml @ 0 mls/hr ONCE ONCE IV 02/22/24 11:00 02/22/24 11:04 DC 02/22/24 11:18 Vital Signs Date Time Temp Pulse Resp B/P (MAP) Pulse Ox O2 Delivery O2 Flow Rate FiO2 02/22/24 10:45 97.9 58 16 131/92 98 Room Air 0 02/22/24 10:45 97.9 58 16 131/92 98 Room Air* 0 21 DX & DISP Disposition: Discharge Departure Impression: Primary Impression: Viral gastroenteritis Condition: Stable Scripts Lactobacillus Acidophilus (Acidophilus) 1 Billion Cell Tablet 1 TAB PO DAILY for 7 Days, #7 TAB 0 Refills Prov: RACHAEL SHERMAN MD 02/22/24 Pantoprazole Sodium (Protonix) 40 Mg Ectab 1 TAB PO DAILY for 30 Days, #30 TAB 0 Refills Prov: RACHAEL SHERMAN MD 02/22/24 Additional Instructions: FOLLOW-UP WITH PRIMARY CARE PROVIDER IN 1 TO 2 DAYS. TAKE MEDICATIONS DIRECTED HERE IN THE EMERGENCY ROOM. OKAY TO CONTINUE HOME MEDICATIONS UNLESS OTHERWISE DISCUSSED DURING YOUR VISIT IN THE EMERGENCY ROOM TODAY. RETURN TO YOUR NEAREST EMERGENCY ROOM IF SYMPTOMS WORSEN OR IF THERE IS NO IMPROVEMENT. CALL 911 IF YOU NEED IMMEDIATE ASSISTANCE. TAKE TYLENOL [id number] NEEDED AND IF NO CONTRAINDICATIONS ARE PRESENT. INCREASE ORAL HYDRATION. A WOUND CULTURE OR URINE CULTURE WAS ORDERED HERE IN THE EMERGENCY ROOM DEPARTMENT PLEASE FOLLOW-UP WITH PRIMARY CARE PROVIDER AND ADVISE THEM TO GET REPEAT PORTS FROM OUR FACILITY. IF YOU HAD ANY FERMIN WRAP/SPLINTS THAT WERE APPLIED HERE, PLEASE DO NOT REMOVE THEM UNTIL YOU SEE YOUR PRIMARY CARE OR SPECIALTY. Referrals: Referrals: SELF,REFERRAL (PCP) MERON MARCELINO MD, LUIS A MD Time of Disposition: 12:40 CATHERINE FRANCIS MD Feb 22, 2024 11:13 RACHAEL SHERMAN MD Feb 22, 2024 12:40
[2024-02-22] MEDS: 0.9%NACL 1000ML 1,000 ML IV ONE (11:18)
[2024-02-22] MEDS: PANTOPrazole 40 MG/VIAL IVP ONE (11:18)
[2024-02-22 11:22] LABS: BASOPHILS # (AUTO) 0.03 K/uL (0.00-0.20); BASOPHILS % (AUTO) 0.5 % (0.0-5.0); EOSINOPHILS # (AUTO) 0.15 K/uL (0.00-0.70); EOSINOPHILS % (AUTO) 2.3 % (0.0-8.0); HEMATOCRIT 45.8 % (42-54); IMMATURE GRANULOCYTE ABSOLUTE 0.01 K/uL (0-1); LYMPHOCYTES % (AUTO) 31.4 % (21.0-51.0); MEAN CORPUSCULAR HEMOGLOBIN 30.4 pg (27.0-33.0); MEAN CORPUSCULAR HGB CONC 35.4 g/dL (32.0-36.0); MEAN CORPUSCULAR VOLUME 85.9 fL (79-99); MONOCYTES # (AUTO) 0.6 K/uL (0.1-1.0); MONOCYTES % (AUTO) 9.2 % (3.0-13.0); NEUTROPHILS # (AUTO) 3.6 K/uL (1.8-7.7); NEUTROPHILS % (AUTO) 56.4 % (40.0-77.0); PLATELET COUNT (AUTO) 268 K/uL (130-400); RED BLOOD CELL COUNT(AUTO) 5.33 MIL/uL (4.50-6.20); RED CELL DISTRIBUTION WIDTH 12.7 % (11.0-15.5); WHITE BLOOD COUNT (AUTO) 6.4 K/uL (4.8-10.8)
[2024-02-22 11:32] LABS: CREATININE 0.8 mg/dL (0.5-1.3); POTASSIUM 3.8 mmol/L (3.5-5.1)
[2024-02-22 11:47] LABS: APPEARANCE,URINE CLEAR (CLEAR); BILIRUBIN,URINE NEGATIVE (NEGATIVE); COLOR,URINE YELLOW (YELLOW); GLUCOSE, URINE (UA) NEGATIVE (NEGATIVE); KETONES,URINE NEGATIVE (NEGATIVE); LEUKOCYTE ESTERASE ,URINE NEGATIVE Leu/uL (NEGATIVE); NITRATE,URINE NEGATIVE (NEGATIVE); OCCULT BLOOD,URINE NEGATIVE (NEGATIVE); PH,URINE 5.5 (5.0-8.0); PROTEIN,URINE NEGATIVE (NEGATIVE); UROBILINOGEN,URINE 0.2 mg/dL (0.2-1.0)
[2024-02-22 12:03] LABS: ADD UA MICROSCOPIC NO
[2024-02-22] MEDS ORDERED: PANT40TA55 PO (12:38)
[2024-02-22] MEDS ORDERED: LACT1TAB14 PO (12:39)
== END 2024-02-22 12:51 | disposition home or self-care (01) ==
LOC: EDH 10:44
DX: A08.4 Viral intestinal infection, unspecified (principal); Z79.1 Long term (current) use of non-steroidal anti-inflammatories (NSAID); Z88.8 Allergy status to other drugs, medicaments and biological substances; Z90.49 Acquired absence of other specified parts of digestive tract; Z91.041 Radiographic dye allergy status
CPT/HCPCS: 99284; 96374; 80048; 85025; 81003; 36415; J7030; J2470